=== PATIENT | male | born 1950 | race Caucasian/White ===

== ENCOUNTER 2024-09-28 16:22 | Emergency (ER) | payer MEDICARE ==
[~2024-09-28] VITALS: Ht 193 cm; Wt 127.0 kg
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
[2024-09-28 17:38] LABS: IMMATURE GRANULOCYTE ABSOLUTE 0.05 K/uL (0-1); NUCLEATED RED BLOOD CELLS 0.0 % (0.0-0.19); PLATELET COUNT (AUTO) 228 K/uL (130-400); RED BLOOD CELL COUNT(AUTO) 5.09 MIL/uL (4.50-6.20); RED CELL DISTRIBUTION WIDTH 12.5 % (11.0-15.5); WHITE BLOOD COUNT (AUTO) 10.8 K/uL (4.8-10.8)
[2024-09-28 17:48] LABS: CREATININE 1.2 mg/dL (0.5-1.3); GLOMERULAR FILTR. RATE CALC 63.0 mL/min (>90); GLUCOSE,RANDOM 96.0 mg/dL (70-105); SODIUM SERUM 139.0 mmol/L (136-145); UREA NITROGEN, BLOOD 21.0 mg/dL (7-18)
[2024-09-28 18:51] VITALS: BP 129/78; PULSE 82; RESP 18; TEMP 98; O2SAT 96
[2024-09-28] MEDS: CLINDAMYCIN 150 MG CAP PO SCH (18:55)
[2024-09-28] MEDS ORDERED: IBUP-2077 PO (19:07)
[2024-09-28] MEDS ORDERED: CLIN-141 PO (19:07)
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
--- NOTE | 2024-09-28 19:57 | HMCIMG ---
EXAM: US for Deep Venous Thrombosis, Right Lower Extremity. CLINICAL HISTORY: The patient presents with leg pain and swelling with calf tenderness. TECHNIQUE: Real-time ultrasound scan of the veins of the right lower extremity with color Doppler flow, spectral waveform analysis, and compression. COMPARISON: None provided. FINDINGS: DEEP VEINS: The great saphenous vein, common femoral vein, profunda femoris vein, proximal, mid, and distal superficial femoral vein, popliteal vein, and posterior tibial vein are compressible with normal color Doppler flow and augmentation. No evidence of deep venous thrombosis. SOFT TISSUES: Zacarias???s cyst in the right popliteal fossa measuring 2.7 x 1.1 x 4.8 cm. Small subcutaneous hematoma anterior to the mid tibia measuring 4.2 x 0.8 x 2.6 cm. IMPRESSION: No evidence of deep venous thrombosis in the right lower extremity. Zacarias???s cyst in the right popliteal fossa. Small subcutaneous hematoma anterior to the mid tibia. /Kristina
== END 2024-09-28 19:13 | disposition home or self-care (01) ==
LOC: EDH 16:22
DX: S80.11XA Contusion of right lower leg, initial encounter (principal); L03.115 Cellulitis of right lower limb; M71.21 Synovial cyst of popliteal space [Baker], right knee; I10 Essential (primary) hypertension; I48.91 Unspecified atrial fibrillation; M79.661 Pain in right lower leg; M19.90 Unspecified osteoarthritis, unspecified site; Z95.810 Presence of automatic (implantable) cardiac defibrillator; X58.XXXA Exposure to other specified factors, initial encounter; Y93.89 Activity, other specified; Y92.89 Other specified places as the place of occurrence of the external cause; Y99.8 Other external cause status
CPT/HCPCS: 36415; 73590; 80048; 83605; 85025; 87040; 93971; 99284

== ENCOUNTER 2024-10-07 14:40 | Emergency (ER) | payer OTHER ==
[~2024-10-07] VITALS: Ht 193 cm; Wt 127.0 kg
[~2024-10-07 14:40] MED LIST: CLIN-141 PO; IBUP-2077 PO
[2024-10-07 14:44] VITALS: TEMP 98
[2024-10-07 15:09] LABS: IMMATURE GRANULOCYTE ABSOLUTE 0.03 K/uL (0-1); NUCLEATED RED BLOOD CELLS 0.0 % (0.0-0.19); PLATELET COUNT (AUTO) 207 K/uL (130-400); RED BLOOD CELL COUNT(AUTO) 4.81 MIL/uL (4.50-6.20); RED CELL DISTRIBUTION WIDTH 12.6 % (11.0-15.5); WHITE BLOOD COUNT (AUTO) 8.7 K/uL (4.8-10.8)
[2024-10-07 15:18] LABS: CREATININE 1.0 mg/dL (0.5-1.3); GLOMERULAR FILTR. RATE CALC 78.0 mL/min (>90); GLUCOSE,RANDOM 102.0 mg/dL (70-105); SODIUM SERUM 136.0 mmol/L (136-145); UREA NITROGEN, BLOOD 23.0 mg/dL (7-18)
[2024-10-07 15:22] LABS: ASPARTATE AMINOTRANSFERASE 16.0 U/L (10-37); TOTAL PROTEIN, SERUM 6.7 g/dL (6.0-8.3)
[2024-10-07 16:12] LABS: ERYTHROCYTE SEDIMENTATION RATE 9 MM/HR (0-20)
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
[2024-10-07 16:53] VITALS: BP 134/71; PULSE 65; RESP 14; O2SAT 96
--- NOTE | 2024-10-07 17:03 | HMCIMG ---
EXAM: US for Deep Venous Thrombosis, Right Lower Extremity. CLINICAL HISTORY: Leg Pain and Swelling TECHNIQUE: Real-time ultrasound scan of the veins of the right lower extremity with color Doppler flow, spectral waveform analysis and compression. COMPARISON: Ultrasound images dated September 28, 2024 FINDINGS: DEEP VEINS: The common femoral, superficial femoral, and popliteal veins are echolucent and compressible. There is normal color Doppler flow throughout. The visualized calf veins appear patent. SOFT TISSUES: Incidental 3.2 x 4.6 x 0.8 cm Zacarias's cyst within the right popliteal fossa. There is a 3.2 x 0.7 x 1.5 cm collection/hematoma within the anterior, mid right leg. IMPRESSION: 1. No deep venous thrombosis in the right lower extremity. 2. Small hematoma in the anterior mid right leg, decreased from the prior examination. /[place]
== END 2024-10-07 17:55 | disposition home or self-care (01) ==
LOC: EDH 14:40
DX: S80.11XA Contusion of right lower leg, initial encounter (principal); I48.91 Unspecified atrial fibrillation; M19.90 Unspecified osteoarthritis, unspecified site; I11.9 Hypertensive heart disease without heart failure; Z95.810 Presence of automatic (implantable) cardiac defibrillator; X58.XXXA Exposure to other specified factors, initial encounter; Y93.89 Activity, other specified; Y92.89 Other specified places as the place of occurrence of the external cause; Y99.8 Other external cause status
CPT/HCPCS: 36415; 80053; 85025; 85651; 86140; 87040; 93971; 99284